=== PATIENT | male | born 1975 | race Caucasian/White ===

== ENCOUNTER 2023-10-27 14:36 | Emergency (ER) | payer OTHER, SELFPAY ==
[2023-10-27] VITALS (13 sets, daily range): BP systolic 114–144; BP diastolic 57–74; PULSE 81–101; RESP 9–36; TEMP 36.7–37.1; O2SAT 93–96; BMI 52.2
--- NOTE | 2023-10-27 15:02 | DI.RAD.S_ITS ---
PROCEDURE: XR CHEST 1V INDICATIONS: Shortness of breath TECHNIQUE: One view of the chest was acquired. COMPARISON: None. FINDINGS: Surgical changes and devices: None. Lungs and pleura: Low lung volumes. Lungs are clear. No pleural effusions or pneumothorax. Mediastinum: Mediastinal contours appear normal. Heart size is normal. Bones and chest wall: No suspicious bony lesions. Overlying soft tissues appear unremarkable. IMPRESSION: Low lung volumes. No acute cardiopulmonary abnormality is seen. Dictated by: David Zhang M.D. on 10/27/2023 at 14:41 Approved by: David Zhang M.D. on 10/27/2023 at 14:41
--- NOTE | 2023-10-27 15:02 | EKG_ITS ---
[address] [address] Test Date: 2023-10-27 Pat Name: Patrick Santos Department: [facility] Room: Gender: Male [employer] App[employer]ice: JUANA : 1975 Requested By: Order Number: [id number] Reading MD: Kade Boateng Measurements Intervals [place] Rate: 91 P: 28 CO: 144 QRS: -27 QRSD: 98 T: 63 QT: 348 QTc: 428 Interpretive Statements Normal sinus rhythm Electronically Signed On 10-27-2023 17:09:28 PDT by Kade Boateng
[2023-10-27 15:27] LABS: Add Manual Diff / Slide Review NO; Basophils Absolute Auto 100 /uL (0-100); Basophils Percent Auto 0.7 % (0-2); Eosinophils Absolute Auto 100 /uL (0-450); Eosinophils Percent Auto 0.9 % (2-4); Hemoglobin 14.5 g/dL (13.5-17.5); Lymphocytes Absolute Auto 2200 /uL (1100-4500); Lymphocytes Percent Auto 28.4 % (25-40); Mean Corpuscular HGB Conc 34.5 % (30-36); Mean Corpuscular Hemoglobin 31.7 PG (26-34); Mean Corpuscular Volume 91.9 fL (80-100); Monocytes Absolute Auto 900 /uL (0-900); Monocytes Percent Auto 11.1 % (3-14); Neutrophils Absolute Auto 4700 /uL (1500-7000); Neutrophils Percent Auto 58.9 % (50-75); Platelet Count 202 X10^3/uL (150-400); Red Blood Cell Count 4.58 X10^6/uL (4.5-5.9); Red Cell Distribution Width 13.5 % (11.6-14.8); White Blood Cell Count 7.9 X10^3/uL (4.5-11.0)
[2023-10-27 15:31] LABS: INR 1.1 (0.9-1.3); Prothrombin Time 12.9 SECONDS (9.4-12.5)
[2023-10-27 15:38] LABS: Alanine Aminotransferase 95 IU/L (<50); Albumin 4.6 g/dL (3.5-5.0); Albumin Globulin Ratio 1.2 (1.0-2.8); Alkaline Phosphatase 89 U/L (38-126); Aspartate Aminotransferase 70 IU/L (17-59); BUN Creatinine Ratio 11.3 (6-22); Bilirubin Total 0.7 mg/dL (0.2-1.3); Blood Urea Nitrogen 11 mg/dL (9-20); Calcium 9.7 mg/dL (8.4-10.2); Carbon Dioxide 24 mmol/L (22-32); Chloride 106 mmol/L (98-107); Estimated Glomerular Filt Rate > 60 mL/min (>60); Globulin 3.9 g/dL (1.7-4.1); Glucose 113 mg/dL (70-100); HEMOLYSIS < 15 (0-50); Potassium 3.8 mmol/L (3.4-5.1); Sodium 139 mmol/L (137-145); Total Protein 8.5 g/dL (6.3-8.2)
[2023-10-27 15:39] LABS: Lactate (Lactic Acid) 3.5 mmol/L (0.7-2.1)
[2023-10-27] MEDS: methylPREDNISolone 125 MG/2 ML VIAL IV (15:41)
[2023-10-27 15:50] LABS: NT-proBNP (BNP-Adult 18+) 44 pg/mL (<125); Troponin I < 0.012 ng/mL (0.01-0.034)
--- NOTE | 2023-10-27 15:53 | ED.SOB ---
HPI - SOB/Dyspnea General Chief Complaint: Shortness of Breath/Dyspnea Stated Complaint: SOB COUGH CHEST PAIN Time Seen by Provider: 10/27/23 15:19 Source: patient and family Mode of arrival: Wheelchair History of Present Illness HPI Narrative: 48-year-old male history of COPD, prior tobacco abuse, chronic back pain presents with complaint of increased cough and shortness of breath for the past 3 days. No fevers, diaphoresis. Patient has had a harsh dry cough that has been worsening. He states no pain except when he is coughing. States he does feel short of breath he has been using DuoNebs much more frequently sometimes up to 10 times daily. They are helpful but then his symptoms returned. He did not 3 DuoNebs back to back today because he felt so short of breath, he states he was not improve so presented here but has since improved without other interventions. He states cough is nonproductive. No vomiting, no diarrhea constipation, no swelling of extremities. Patient takes albuterol inhaler, has DuoNebs, has Alvesco as his steroid inhaler, montelukast, he takes gabapentin, trazodone and Sayre daily for chronic back pain. Has had prior back and ankle surgeries. Smokes 5 packs a day for approximately 26 years, no regular alcohol or recreational drugs. Reports allergy or adverse reaction pregabalin causes hallucinations. He follows with primary care at [facility], does not follow with pulmonology. Patient states he feels improved currently. He has been on oral prednisone in the past but not in the last several months. Related Data Previous Rx's Medication Instructions Recorded codeine 10 mg-guaifenesin 100 mg/5 10 ml PO Q4-6H PRN cough #120 mL 10/27/23 mL oral liquid ipratropium 0.5 mg-albuterol 3 mg 3 ml inhalation Q4-6H PRN 10/27/23 (2.5 mg base)/3 mL nebulization shortness of breath or wheezing soln #90 mL prednisone 10 mg tablets in a dose See Rx Instructions PO .COMPLEX 10/27/23 pack #21 ea Allergies Allergy/AdvReac Type Severity Reaction Status Date / Time No Known Drug Allergies Allergy Verified 10/27/23 14:55 Review of Systems Review of Systems ROS Unobtainable: All systems reviewed & are unremarkable except as noted in HPI and below Patient History Social History Smoking Status: Former smoker Smoking Status: Former smoker Substance Use Type: does not use Exam Narrative Exam Narrative: GENERAL: Alert and oriented x three, obese male in mild distress. HEENT: Head normocephalic, atraumatic, EOMI, pupils reactive, face symmetric, moist mucous membranes NECK: Supple, full range of motion CARDIOVASCULAR: Regular rate and rhythm without murmurs, rubs or gallops. No JVD. No edema bilateral lower extremities. RESPIRATORY: Breath sounds equal bilaterally, no wheezes rales or rhonchi. Tachypnea, no accessory muscle use. Patient's speaks in full sentences. Does have intermittent dry harsh cough. ABDOMEN: Soft, nontender. Normoactive bowel sounds all 4 quadrants. No guarding or rebound, rigidity, no mass : No CVA tenderness EXTREMITIES: Normal range of motion, no clubbing or edema. Neurovascularly intact NEUROLOGICAL: Cranial nerves II through XII grossly intact. Moving all extremities SKIN: Warm, dry, no petechiae, no rashes or lesions. Initial Vital Signs Initial Vital Signs: Vital Signs Temperature 98.8 F 10/27/23 14:56 Pulse Rate 93 H 10/27/23 14:56 Respiratory Rate 36 H 10/27/23 14:56 Blood Pressure 114/60 10/27/23 14:56 Pulse Oximetry 94 10/27/23 14:56 Oxygen Delivery Method Room Air 10/27/23 14:56 Course Orders Ordered: Discontinued Medications Albuterol (Albuterol 2.5 Mg/3 Ml Neb (Adult)) 5 mg INH NOW ONE Stop: 10/27/23 16:44 Last Admin: 10/27/23 16:59 Dose: 5 mg Documented By: Guaifenesin/Codeine Phosphate (Codeine/Guaifenesin Liquid 5ml Udc) 10 ml PO NOW ONE Stop: 10/27/23 16:44 Last Admin: 10/27/23 16:58 Dose: 10 ml Documented By: Sodium Chloride (Normal Saline 0.9%) 1,000 mls @ 1,000 mls/hr IV BOLUS ONE Stop: 10/27/23 17:42 Last Infusion: 10/27/23 19:08 Dose: Infused Documented By: Admin: 10/27/23 17:00 Dose: 1,000 mls/hr Documented By: Methylprednisolone (Methylprednisolone 125 Mg/2 Ml Vial) 125 mg IV NOW ONE Stop: 10/27/23 15:20 Last Admin: 10/27/23 15:41 Dose: 125 mg Documented By: JUANA Vital Signs Vital signs: Vital Signs - 8 hr 10/27/23 14:56 Temperature 98.8 F Pulse Rate 93 H Respiratory Rate 36 H Blood Pressure 114/60 Pulse Oximetry 94 Oxygen Delivery Method Room Air MDM - SOB/Dyspnea Lab Data 10/27/23 15:18 10/27/23 15:18 Labs: Lab Results 10/27/23 10/27/23 10/27/23 Range/Units 15:06 15:18 17:10 WBC 7.9 (4.5-11.0) X10^3/uL RBC 4.58 (4.5-5.9) X10^6/uL Hgb 14.5 (13.5-17.5) g/dL Hct 42.0 (41-53) % MCV 91.9 (80-100) fL MCH 31.7 (26-34) PG MCHC 34.5 (30-36) % RDW 13.5 (11.6-14.8) % Plt Count 202 (150-400) X10^3/uL Neut % (Auto) 58.9 (50-75) % Lymph % (Auto) 28.4 (25-40) % [place] % (Auto) 11.1 (3-14) % Eos % (Auto) 0.9 L (2-4) % Baso % (Auto) 0.7 (0-2) % Neut # (Auto) 4700 (1677-4886) /uL Lymph # (Auto) 2200 (5408-2847) /uL [place] # (Auto) 900 (0-900) /uL Eos # (Auto) 100 (0-450) /uL Baso # (Auto) 100 (0-100) /uL PT 12.9 H (9.4-12.5) SECONDS INR 1.1 (0.9-1.3) Sodium 139 (137-145) mmol/L Potassium 3.8 (3.4-5.1) mmol/L Chloride 106 (98-107) mmol/L Carbon Dioxide 24 (22-32) mmol/L BUN 11 (9-20) mg/dL Creatinine 0.97 (0.66-1.25) mg/dL Estimated GFR > 60 (>60) mL/min BUN/Creatinine Ratio 11.3 (6-22) Glucose 113 H (70-100) mg/dL Lactate 3.5 H 2.1 (0.7-2.1) mmol/L Calcium 9.7 (8.4-10.2) mg/dL Total Bilirubin 0.7 (0.2-1.3) mg/dL AST 70 H (17-59) IU/L ALT 95 H (<50) IU/L Alkaline Phosphatase 89 (38-126) U/L Troponin I < 0.012 (0.01-0.034) ng/mL NT-Pro-B Natriuret Pep 44 (<125) pg/mL Total Protein 8.5 H (6.3-8.2) g/dL Albumin 4.6 (3.5-5.0) g/dL Globulin 3.9 (1.7-4.1) g/dL Albumin/Globulin Ratio 1.2 (1.0-2.8) Chlamy pneumoniae PCR Not detected (Not Detect) Adenovirus (PCR) Not detected (Not Detect) B.parapertussis DNA PCR Not detected (Not Detecte) Coronavirus OC43 (PCR) Not detected (Not Detect) Coronavirus HKU1 (PCR) Not detected (Not Detect) Coronavirus 229E (PCR) Not detected (Not Detect) SARS-CoV-2 (PCR) Not detected (Not Detecte) Coronavirus NL63 (PCR) Not detected (Not Detect) Human Metapneumovir PCR Not detected (Not Detect) Influenza Type A (PCR) Not detected (Not Detect) Influenza Type B (PCR) Not detected (Not Detect) M. pneumoniae (PCR) Not detected (Not Detect) Parainfluenza 1 (PCR) Not detected (Not Detect) Parainfluenza 2 (PCR) Not detected (Not Detect) Parainfluenza 3 (PCR) Detected H (Not Detect) Parainfluenza 4 (PCR) Not detected (Not Detect) RSV (PCR) Not detected (Not Detect) Entero/Rhino (PCR) Not detected (Not Detect) Imaging Data Chest x-ray: Radiologist's Impression: Close Chest X-Ray (Signed) David Zhang 10/27/23 Launch?[address] [address] XRay Report Signed Patient: Patrick Santos MR#: [id number] : 1975 Acct:[id number] Age/Sex: 48 / M Date of Service: 10/27/23 Loc: ED Accession Number: [id number] Procedure: XR chest 1V Ordering Provider: Susan Fuentes D.O. PROCEDURE: XR CHEST 1V INDICATIONS: Shortness of breath TECHNIQUE: One view of the chest was acquired. COMPARISON: None. FINDINGS: Surgical changes and devices: None. Lungs and pleura: Low lung volumes. Lungs are clear. No pleural effusions or pneumothorax. Mediastinum: Mediastinal contours appear normal. Heart size is normal. Bones and chest wall: No suspicious bony lesions. Overlying soft tissues appear unremarkable. IMPRESSION: Low lung volumes. No acute cardiopulmonary abnormality is seen. Dictated by: David Zhang M.D. on 10/27/2023 at 14:41 Approved by: David Zhang M.D. on 10/27/2023 at 14:41 ECG Data Attestation: I personally reviewed and interpreted this ECG as follows: Interpretation: Sinus rhythm rate of 91 HI 144 QRS of 98 QTC 428, no acute ST elevation depression noted. MDM Narrative Medical decision making narrative: 48-year-old male with known lung disease/COPD was chronic smoker by packs per day for 26 years, patient's quit approximately 8-10 years ago. Does have albuterol, DuoNebs, does use a steroid daily inhaler daily. Along with montelukast. Patient has had exacerbation of symptoms over the past 3 days with infectious type symptoms. He is afebrile, was tachypneic, no hypotension no hypoxia. Did 3 DuoNebs back to back at home he states symptoms seem improved after arrival here. Patient's labs show normal white count, hemoglobin and platelets, no predominance of neutrophils. Electrolytes are overall appropriate, glucose is 113 lactate 3.5, AST ALT are elevated at 70 95, troponins less than 0.012 BNP is 44. Respiratory panel is positive for parainfluenza 3 Chest x-ray shows no acute change. EKG shows sinus rhythm with a rate in the 90s. Patient was given a dose of Solu-Medrol, monitored for a period of time. Patient continues to be improved after steroids in his home DuoNebs plan to discharge home on oral prednisone likely having an exacerbation of his COPD secondary to parainfluenza. Patient's repeat lactate is improved. He would fluids after the repeat lactate. He had some very mild wheeze on recheck and had 1 additional albuterol. Patient states his breathing is significantly improved he feels much better than it was. Did not give him a dose of codeine for cough. Patient states that he feel he can return home. He is sitting up in bed on the edge and states that he would like to return home. States he is close to running out of his DuoNeb we will refill this, prescription for prednisone as well as cough syrup. Strict return precautions. Patient states he is plenty of albuterol has a spacer at home. He is on montelukast. Discharge Plan Departure Patient Disposition: Home Clinical Impression: Acute exacerbation of chronic obstructive airways disease, Infection due to parainfluenza virus 3 Activity Restrictions/Additional Instructions: You have tested positive for parainfluenza today, this is likely exacerbating your COPD. This is a viral illness that typically last 7-10 days and then resolves. You can take Tylenol/or ibuprofen for fever. You may take cough syrup with codeine every 6 hours as needed. This medication does have a narcotic in it can make you sleepy. This medication can make you sleepy do not drive, perform hazardous activities or make any major decisions while taking it. This medication will make you constipated please take a stool softener once to twice daily until stools are soft and regular. Refill for your DuoNeb is included. Also a prednisone taper, start your prednisone tomorrow. Please return if you are having worsening symptoms, increasing shortness of breath, increasing work of breathing, any new chest pain, persistent fevers, lightheadedness or passing out, any vomiting, any signs of dehydration or other new or concerning changes Prescriptions: New prednisone 10 mg tablets,dose pack See Rx Instructions .ROUTE .COMPLEX Qty: 21 0RF Rx Instructions: 6 tabs p.o. x1 day, then 5 tabs p.o. x1 day, then 4 tablets p.o. x1 day, then 3 tabs p.o. x1 day, then 2 tabs p.o. x1 day, then 1 tab p.o. x1 day ipratropium-albuterol 0.5 mg-3 mg(2.5 mg base)/3 mL solution for nebulization 3 ml inhalation Q4-6H PRN (Reason: shortness of breath or wheezing) Qty: 90 0RF codeine-guaifenesin 10-100 mg/5 mL liquid 10 ml PO Q4-6H PRN (Reason: cough) Qty: 120 0RF Stand Alone Forms: Patient Portal/API
[2023-10-27 16:00] LABS: Adenovirus Not Detected (Not Detect); B. parapertussis Not Detected (Not Detecte); Bordetella pertussis Not Detected (Not Detect); Chlamydophila pneumoniae Not Detected (Not Detect); Coronavirus 229E Not Detected (Not Detect); Coronavirus HKU1 Not Detected (Not Detect); Coronavirus NL 63 Not Detected (Not Detect); Coronavirus OC43 Not Detected (Not Detect); Human Metapneumovirus Not Detected (Not Detect); Human Rhinovirus/Enterovirus Not Detected (Not Detect); Influenza A Not Detected (Not Detect); Influenza B Not Detected (Not Detect); Mycoplasma pneumoniae Not Detected (Not Detect); Parainfluenza Virus 1 Not Detected (Not Detect); Parainfluenza Virus 2 Not Detected (Not Detect); Parainfluenza Virus 3 Detected (Not Detect); Parainfluenza Virus 4 Not Detected (Not Detect); Respiratory Syncytial Virus Not Detected (Not Detect); SARS- CoV-2 Not Detected (Not Detecte)
[2023-10-27 16:57] LABS: Reflexed Lactate in 2 Hours Y
[2023-10-27] MEDS: CODEINE/GUAIFENESIN LIQUID 5ML UDC 10 ML PO (16:58)
[2023-10-27] MEDS: ALBUTEROL 2.5 MG/3 ML NEB (ADULT) 5 MG INH (16:59)
[2023-10-27] MEDS: SODIUM CHLORIDE 0.9% 1,000 ML 1000 ML IV (17:00)
[2023-10-27 17:25] LABS: Lactate 2HR (Lactic Acid Rflx) 2.1 mmol/L (0.7-2.1)
== END 2023-10-27 18:59 | disposition home or self-care (01) ==
PROVIDERS: Emergency Provider Emergency Medicine
DX: J44.1 Chronic obstructive pulmonary disease with (acute) exacerbation (principal); B34.8 Other viral infections of unspecified site; Z11.52 Encounter for screening for COVID-19
CPT/HCPCS: 36415; 71045; 80053; 83605; 83880; 84484; 85025; 85610; 87633; 93005; 96361; 96374; 99284; J2919; J7613